=== PATIENT | male | born 1995 | race Caucasian/White ===

== ENCOUNTER 2023-05-15 15:36 | Outpatient (CLI) | payer OTHER ==
--- NOTE | 2023-05-16 10:10 | XRAY Report ---
PROCEDURE: Wrist 3 View LT INDICATIONS: XR WRIST COMPLETE 3 VIEWS TECHNIQUE: 3 views of the wrist were acquired. COMPARISON: None. FINDINGS: Bones: No fractures or dislocations. No suspicious bony lesions. Soft tissues: No suspicious soft tissue calcifications or masses. IMPRESSION: No acute bony abnormality. If clinical symptoms persist, consider a follow-up exam in 7-10 days. Reviewed by: Elisa Ibrahim MD on 05/16/2023 10:09 AM PDT Approved by: Elisa Ibrahim MD on 05/16/2023 10:09 AM PDT Station ID: [id number]
== END 2023-05-15 15:37 | disposition home or self-care (01) ==
LOC: DI 15:36
PROVIDERS: ATTEND Family Medicine
DX: S63.502A Unspecified sprain of left wrist, initial encounter (principal)